=== PATIENT | female | born 1980 | race Caucasian/White ===

== ENCOUNTER 2017-12-14 13:02 | Day surgery (SDC) | payer OTHER ==
[~2017-12-14] VITALS: Ht 167.6 cm; Wt 61.2 kg
== END 2017-12-14 15:35 | disposition home or self-care (01) ==
LOC: ORSCSDS 13:02
PROVIDERS: Obstetrics & Gynecology
PROC: 0UT74ZZ Resection of Bilateral Fallopian Tubes, Percutaneous Endoscopic Approach (ICD-10-PCS; principal; 2017-12-14 13:45)
DX: Z30.2 Encounter for sterilization (principal); N83.8 Other noninflammatory disorders of ovary, fallopian tube and broad ligament; N80.3 Endometriosis of pelvic peritoneum
CPT/HCPCS: 88302; J0171; J0690; J1100; J1885; J2250; J2405; J2710; J2765; J3010; J7120